=== PATIENT | male | born 1990 | race Caucasian/White ===

== ENCOUNTER 2018-07-21 17:25 | Emergency (ER) | payer OTHER ==
[~2018-07-21] VITALS: Ht 172.7 cm; Wt 66.0 kg
[2018-07-21] MEDS ORDERED: HYDROcodone/APAP 5/325 TABLET PO ONE (18:30)
[2018-07-21] MEDS ORDERED: HYDROcodone/APAP 5/325 TABLET ONE (18:52)
--- NOTE | 2018-07-21 19:13 | NUR ---
Patient/Caregiver given discharge instructions and they have confirmed that they understand the instructions. Patient ambulatory with crutches steady gait. Pt.'s cms checks are intact with pulses +2 throughout on the left leg. Pt. has his prescription.
[2018-07-21 19:15] VITALS: BP 133/78
== END 2018-07-21 19:20 | disposition home or self-care (01) ==
LOC: ED 19:11
DX: S82.64XA Nondisplaced fracture of lateral malleolus of right fibula, initial encounter for closed fracture (principal); F17.200 Nicotine dependence, unspecified, uncomplicated; Z88.0 Allergy status to penicillin; W01.0XXA Fall on same level from slipping, tripping and stumbling without subsequent striking against object, initial encounter; Y93.89 Activity, other specified; Y92.410 Unspecified street and highway as the place of occurrence of the external cause; Y99.8 Other external cause status
CPT/HCPCS: 29515; 99283